=== PATIENT | female | born 1940 | race Asian ===

== ENCOUNTER 2017-08-02 10:22 | Inpatient (IN) | END 2017-08-03 15:27 | disposition home health service (06) | DRG 689 ==

== ENCOUNTER 2017-09-10 16:43 | Inpatient (IN) | END 2017-09-21 22:55 | DRG 470 ==

== ENCOUNTER 2017-09-21 22:55 | Inpatient (IN) | END 2017-10-04 16:00 | disposition home health service (06) | DRG 560 ==

== ENCOUNTER 2017-12-05 05:13 | Emergency (ER) | END 2017-12-05 08:37 | disposition home or self-care (01) ==